=== PATIENT | female | born 1985 | race Hispanic/Latino ===

== ENCOUNTER 2018-01-23 12:27 | Emergency (ER) | payer OTHER ==
[2018-01-23 12:27] VITALS: BMI 37.8
[2018-01-23 12:32] VITALS: BP 127/85; PULSE 80; RESP 16; TEMP 98.1; O2SAT 98
[2018-01-23] MEDS ORDERED: Naproxen 550 mg Tab PO STA (12:52)
--- NOTE | 2018-01-23 12:54 | C.PDOC ---
History Of Present Illness 32 year old female presents to ED with complaint of her left sided upper dental pain. Patient is currently getting work done by her dentist, states she thinks she is developing a dental abscess. She denies drainage, fever. Time Seen by Provider: 01/23/18 12:34 Chief Complaint (Nursing): Dental Pain History Per: Patient History/Exam Limitations: no limitations Onset/Duration Of Symptoms: Days Current Symptoms Are (Timing): Still Present Past Medical History Reviewed: Historical Data, Nursing Documentation, Vital Signs Vital Signs: Last Vital Signs Temp 98.1 F 01/23/18 12:31 Pulse 80 01/23/18 12:31 Resp 16 01/23/18 12:31 BP 127/85 01/23/18 12:31 Pulse Ox 98 01/23/18 16:18 - Medical History PMH: Gastritis, Gall Bladder Disease (BILE LEAK POST CHOLECYSTECTOMY) Surgical History: Cholecystectomy (05/11/2016) - [facility] Procedures DILATION OF COMMON BILE DUCT WITH INTRALUMINAL DEVICE, ENDO (05/14/16) DRAINAGE OF ABDOMINAL WALL WITH DRAIN DEV, OPEN APPROACH (05/29/16) DRAINAGE OF COMMON BILE DUCT WITH DRAIN DEV, PERC APPROACH (05/14/16) RELEASE GREATER OMENTUM, OPEN APPROACH (05/29/16) RESECTION OF SMALL INTESTINE, OPEN APPROACH (05/29/16) Family History: States: No Known Family Hx - Social History Hx Tobacco Use: No Hx Alcohol Use: No Hx Substance Use: No - Immunization History Hx Tetanus Toxoid Vaccination: No Hx Influenza Vaccination: Yes Hx Pneumococcal Vaccination: Yes Review Of Systems Except As Marked, All Systems Reviewed And Found Negative. ENT: Positive for: Mouth Pain (dental pain ) Respiratory: Negative for: Cough, Shortness of Breath Skin: Negative for: Rash Physical Exam - Physical Exam Appears: Well, Non-toxic, No Acute Distress Skin: Normal Color, Warm, Dry Head: Normacephalic, Other (mild left sided cheek swelling) Eye(s): bilateral: Normal Inspection Oral Mucosa: Moist Teeth: Other (Poor dentition) Gingiva: Other (indurated area immediately lateral to teeth 14 and 15, no fluctuance, no drainage.) Cardiovascular: Rhythm Regular Respiratory: Normal Breath Sounds, No Rales, No Rhonchi, No Wheezing Neurological/Psych: Oriented x3 ED Course And Treatment O2 Sat by Pulse Oximetry: 98 (RA) Pulse Ox Interpretation: Normal Progress Note: Patient given PO Naprosyn, Penicillin. Rxs for same + tylenol # 3 given. Patient instructed to follow up with her dentist in 1-2 days, and she understands she should return to ED if symptoms worsen. Reevaluation Time: 12:55 Reassessment Condition: Improved Disposition Counseled Patient/Family Regarding: Diagnosis, Need For Followup, Rx Given - Disposition Referrals: Iliana Barnes MD [Staff Provider] - [facility] [employer] [facility] [Outside] Disposition: HOME/ ROUTINE Disposition Time: 12:55 Condition: STABLE Additional Instructions: FOLLOW UP WITH YOUR DENTIST IN 1-2 DAYS USE MEDICATIONS DIRECTED RETURN TO EMERGENCY ROOM IF SYMPTOMS WORSEN Prescriptions: Acetaminophen with Codeine [Tylenol with Codeine #3 Tablet] 1 each PO Q6 PRN # 12 tablet PRN Reason: pain Naproxen [Naprosyn] 1 tab PO BID PRN #25 tab PRN Reason: Pain Penicillin VK [Penicillin VK Tab] 500 mg PO Q6 #28 tab Instructions: Tooth Abscess (DC) Forms: [employer] (Estonian), Work Excuse Print Language: GREENLANDIC - Clinical Impression Clinical Impression: Dental abscess - Scribe Statement The provider has reviewed the documentation as recorded by the Scribe Alcon Oakley All medical record entries made by the Alvinibe were at my direction and personally dictated by me. I have reviewed the chart and agree that the record accurately reflects my personal performance of the history, physical exam, medical decision making, and the department course for this patient. I have also personally directed, reviewed, and agree with the discharge instructions and disposition.
[2018-01-23] MEDS ORDERED: Naproxen 550 mg Tab PO ONE (12:56)
== END 2018-01-23 13:00 | disposition home or self-care (01) ==
LOC: C.ER 12:27
DX: K04.7 Periapical abscess without sinus (principal)

== ENCOUNTER 2018-06-15 17:51 | Emergency (ER) | payer OTHER ==
[2018-06-15 17:51] VITALS: BMI 37.8
[2018-06-15 18:11] VITALS: BP 139/86; PULSE 89; RESP 18; TEMP 98.9; O2SAT 98
--- NOTE | 2018-06-15 18:50 | C.PDOC ---
History Of Present Illness 32 y/o female presents to ED with c/o mass inside vagina on right side since this morning associated with pain and itchiness. Patient denies discharge, fever , chills, dysuria, hematuria or any other complaints at this time. Time Seen by Provider: 06/15/18 18:38 Chief Complaint (Nursing): Abnormal Skin Integrity History Per: Patient History/Exam Limitations: no limitations Onset/Duration Of Symptoms: Days Current Symptoms Are (Timing): Still Present Past Medical History Reviewed: Historical Data, Nursing Documentation, Vital Signs Vital Signs: Last Vital Signs Temp 98.9 F 06/15/18 18:19 Pulse 89 06/15/18 18:19 Resp 18 06/15/18 18:19 BP 139/86 06/15/18 18:19 Pulse Ox 98 06/16/18 22:54 - Medical History PMH: Gastritis, Gall Bladder Disease (BILE LEAK POST CHOLECYSTECTOMY) Surgical History: Cholecystectomy (05/11/2016) - [facility] Procedures DILATION OF COMMON BILE DUCT WITH INTRALUMINAL DEVICE, ENDO (05/14/16) DRAINAGE OF ABDOMINAL WALL WITH DRAIN DEV, OPEN APPROACH (05/29/16) DRAINAGE OF COMMON BILE DUCT WITH DRAIN DEV, PERC APPROACH (05/14/16) RELEASE GREATER OMENTUM, OPEN APPROACH (05/29/16) RESECTION OF SMALL INTESTINE, OPEN APPROACH (05/29/16) Family History: States: No Known Family Hx - Social History Hx Tobacco Use: No Hx Alcohol Use: No Hx Substance Use: No - Immunization History Hx Tetanus Toxoid Vaccination: No Hx Influenza Vaccination: Yes Hx Pneumococcal Vaccination: Yes Review Of Systems Constitutional: Negative for: Fever, Chills Gastrointestinal: Negative for: Vomiting, Abdominal Pain Genitourinary: Positive for: Other (mass to vagina area). Negative for: Dysuria , Frequency, Hematuria, Vaginal Discharge, Vaginal Bleeding Skin: Negative for: Rash Neurological: Negative for: Weakness, Numbness Physical Exam - Physical Exam Appears: Non-toxic, No Acute Distress Skin: Warm, Dry, No Rash Head: Atraumatic, Normacephalic Eye(s): bilateral: Normal Inspection Oral Mucosa: Moist Neck: Supple Cardiovascular: Rhythm Regular, No Murmur Respiratory: No Decreased Breath Sounds, No Wheezing Gastrointestinal/Abdominal: Soft, No Tenderness, No Guarding, No Rebound, Other (obese abdomen, well healed surgical scars) Pelvic: No Vaginal Discharge, Mass (marble sized firm mobile tender mass to inner area of right side external labia, palpable from inside labia to mon pubis ,no swelling noted on mons pubis. non fluctuant ) Neurological/Psych: Oriented x3, Normal Speech, Normal Cognition ED Course And Treatment O2 Sat by Pulse Oximetry: 98 (RA) Pulse Ox Interpretation: Normal Medical Decision Making Medical Decision Making: Discussed with Dr Larson from general manager, recommends bactrim, sitz baths and f/u. plan discussed with Dr Croft who agrees. Disposition Counseled Patient/Family Regarding: Studies Performed, Diagnosis, Need For Followup, Rx Given - Disposition Disposition: HOME/ ROUTINE Disposition Time: 20:03 Condition: IMPROVED Additional Instructions: Please take antibiotics as prescribed until completed. Recommend sitz baths several times a day. Return to ER in 2 days for wound check; but return to ER sooner for any abdominal pain, vomiting, fever, increasing size of mass, or any other concerns . Prescriptions: Acetaminophen [Tylenol 325mg tab] 650 mg PO Q4 #50 tab Sulfamethoxazole/Trimethoprim [Bactrim 400-80 mg Tablet] 1 each PO BID #20 tablet Instructions: How to Do a Sitz Bath Forms: General Discharge Instructions, [facility] (Korean), Work Excuse - Clinical Impression Clinical Impression: Mass of vagina - PA / VOICE INTERCEPT TECHNICIAN / Resident Statement MD/DO has reviewed & agrees with the documentation as recorded. - Scribe Statement The provider has reviewed the documentation as recorded by the Britt Bonilla All medical record entries made by the Alvinibbrenda were at my direction and personally dictated by me. I have reviewed the chart and agree that the record accurately reflects my personal performance of the history, physical exam, medical decision making, and the department course for this patient. I have also personally directed, reviewed, and agree with the discharge instructions and disposition.
[2018-06-15] MEDS: Tmp-Smz 800 mg-160 mg DS Tab PO STA (19:26)
[2018-06-15] MEDS ORDERED: Tmp-Smz 800 mg-160 mg DS Tab ONE ×2 (19:28→20:14)
[2018-06-15 19:48] LABS: SQUAMOUS EPITHIAL 2 /hpf (0-5); URINE BACTERIA FEW (<OCC); URINE BILIRUBIN NEGATIVE (NEGATIVE); URINE BLOOD 1+ (NEGATIVE); URINE CLARITY Clear (Clear); URINE COLOR Yellow (YELLOW); URINE GLUCOSE (UA) NORMAL (Normal); URINE LEUKOCYTE ESTERASE 3+ Leu/uL (Negative); URINE PROTEIN NEGATIVE (NEGATIVE); URINE UROBILINOGEN NORMAL mg/dL (0.2-1.0)
== END 2018-06-15 20:18 | disposition home or self-care (01) ==
LOC: C.ER 17:51
DX: N89.9 Noninflammatory disorder of vagina, unspecified (principal)